=== PATIENT | female | born 1980 | race Caucasian/White ===

== ENCOUNTER → 2017-07-23 | Outpatient (REF) | payer OTHER ==
[2017-07-23 13:45] LABS: FERRITIN 3 NG/ML (8-252); IRON (FE) 16 UG/DL (50-170); PERCENT SATURATION 3.4 % (13.2-45.0); TOTAL IRON BINDING CAPACITY 475 UG/DL (250-450)
== END ==
LOC: M LAB REF 13:07
DX: D50.9 Iron deficiency anemia, unspecified (principal)
CPT/HCPCS: 83550

== ENCOUNTER → 2017-09-17 | Outpatient (REF) | payer OTHER, BC ==
[2017-09-17 12:37] LABS: FERRITIN 157 NG/ML (8-252); IRON (FE) 84 UG/DL (50-170); PERCENT SATURATION 27.7 % (13.2-45.0); TOTAL IRON BINDING CAPACITY 303 UG/DL (250-450)
== END ==
LOC: M LAB REF 12:02
DX: D50.9 Iron deficiency anemia, unspecified (principal)
CPT/HCPCS: 83550

== ENCOUNTER → 2017-09-23 | Outpatient (REF) | payer OTHER, BC ==
[2017-09-23 18:27] LABS: VITAMIN B12 LEVEL 423 PG/ML (247-911)
[2017-09-29 00:06] LABS: METHYLMALONIC ACID 144 nmol/L (0-378)
== END ==
LOC: M LABNEURO 12:01
DX: E53.8 Deficiency of other specified B group vitamins (principal)
CPT/HCPCS: 82607

== ENCOUNTER → 2017-12-09 | Outpatient (REF) | payer OTHER ==
[2017-12-09 13:44] LABS: FERRITIN 117 NG/ML (8-252); IRON (FE) 86 UG/DL (50-170); PERCENT SATURATION 30.1 % (13.2-45.0); TOTAL IRON BINDING CAPACITY 286 UG/DL (250-450)
== END ==
LOC: M LAB REF 12:46
DX: D50.9 Iron deficiency anemia, unspecified (principal)
CPT/HCPCS: 83550

== ENCOUNTER → 2018-06-29 | Outpatient (CLI) | payer BC, OTHER ==
[~2018-06-29] MED LIST: AJOV225I SC; CALCTAB89 PO; CENTCHW4 PO; FERR325T3 PO; GASTROGRAFIN SOLUTION 30ML (Q9963) As Ordered ONE; ISOVUE-370 76% 100ML VIAL (Q9967) As Ordered ONE; MAXZTAB PO; VITA-193 PO
--- NOTE | 2018-06-30 03:29 | REP ---
Clinical: Acute abdominal pain with fever. Technique: Axial contrast enhanced images from the lung bases to the pubic symphysis using oral (per protocol) and 100 ml Isovue 370 intravenous contrast material with precontrast images of the abdomen as well as coronal and sagittal re-formations. Automated dose lowering technique and adjustments according to patient size were utilized during acquisition. Findings: Lung bases are clear. Visualized heart and pericardium normal. Liver, spleen, pancreas, bilateral adrenal glands and kidneys are normal. Evidence of prior gastric surgery and cholecystectomy. No evidence for bowel obstruction or acute inflammatory process. Scattered sigmoid diverticula noted without acute diverticulitis. Pelvis demonstrates normal bladder and evidence for prior hysterectomy. 2.2 cm left adnexal cyst likely physiologic. No ascites. No free air. No intraperitoneal or retroperitoneal adenopathy. Abdominal aorta and vasculature without aneurysm or dissection. Surrounding musculoskeletal structures are intact. Impression: 1. No acute abdominopelvic pathology appreciated. 2. Few scattered sigmoid diverticula without acute diverticulitis. 3. 2.2 cm left adnexal cyst likely physiologic. 4. Evidence of prior cholecystectomy, gastric bypass surgery, and hysterectomy. Electronically Signed by Luigi Keane MD 06/30/2018 03:21 A
== END ==
LOC: M RAD 13:59
PROVIDERS: ATTEND Internal Medicine Hematology & Oncology
DX: R10.31 Right lower quadrant pain (principal); Z98.84 Bariatric surgery status; Z90.49 Acquired absence of other specified parts of digestive tract; K57.30 Diverticulosis of large intestine without perforation or abscess without bleeding; Z90.710 Acquired absence of both cervix and uterus
CPT/HCPCS: 74178; Q9963; Q9967

== ENCOUNTER → 2019-06-08 | Outpatient (CLI) | payer BC, OTHER ==
[~2019-06-08] MED LIST changes: +CYAN500T9 PO; -GASTROGRAFIN SOLUTION 30ML (Q9963) As Ordered ONE; -ISOVUE-370 76% 100ML VIAL (Q9967) As Ordered ONE; -VITA-193 PO; +VITA100018 SL
--- NOTE | 2019-06-08 15:48 | REP ---
Left lower extremity Duplex Doppler venous ultrasound: Real time compression and duplex Doppler interrogation of the left lower extremity deep venous system is performed. The left common femoral, superficial femoral and popliteal veins are fully compressible with transducer pressure and demonstrate normal spontaneous and phasic flow, without evidence of deep venous thrombosis. Impression: No evidence of deep venous thrombosis of the left lower extremity femoral popliteal venous system. Electronically Signed by Jeet Leon MD 06/08/2019 03:39 P
== END ==
LOC: M RAD 14:32
PROVIDERS: ATTEND Psychiatry & Neurology Neurology
DX: I82.402 Acute embolism and thrombosis of unspecified deep veins of left lower extremity (principal)